=== PATIENT | female | born 1975 | race African-American/Black ===

== ENCOUNTER 2023-10-06 07:59 | Day surgery (SDC) | payer OTHER ==
[~2023-10-06] VITALS: Ht 4 cm; Wt 72.6 kg
[2023-10-06] MEDS ORDERED: MIDAZOLAM 5 MG/5 ML VIAL ONE (09:13)
[2023-10-06] MEDS ORDERED: fentaNYL citrate 0.05 MG/ML VIAL ONE (09:13)
[2023-10-06] MEDS: fentaNYL citrate 0.05 MG/ML VIAL IVP ONE (09:35)
[2023-10-06] MEDS: LIDOCAINE 2% 100 MG/5 ML UJET TP ONE (09:36)
[2023-10-06] MEDS ORDERED: hydrALAZINE 20 MG/ML VIAL ONE (09:37)
[2023-10-06] MEDS: hydrALAZINE 20 MG/ML VIAL IVP ONE (09:39)
[2023-10-06] MEDS: ONDANSETRON 4 MG/2 ML VIAL ONE (09:57)
[2023-10-06] MEDS ORDERED: EPINEPHrine PFS 0.1 MG/ML SYR IVP ONE (10:11)
[2023-10-06] MEDS: EPINEPHrine PFS 0.1 MG/ML SYR IVP ONE (10:14)
== END 2023-10-06 12:53 | disposition home or self-care (01) ==
LOC: MMU 07:59 → MOR 07:59
PROVIDERS: ATTEND Internal Medicine Gastroenterology
DX: K62.5 Hemorrhage of anus and rectum (principal); D12.5 Benign neoplasm of sigmoid colon; K64.9 Unspecified hemorrhoids; I10 Essential (primary) hypertension; E78.00 Pure hypercholesterolemia, unspecified; Z90.710 Acquired absence of both cervix and uterus; F17.210 Nicotine dependence, cigarettes, uncomplicated; Z79.899 Other long term (current) drug therapy
CPT/HCPCS: 45381; 45385; 88305; J0171; J0360; J2405; J3010; J2250

== ENCOUNTER 2024-03-08 08:41 | Day surgery (SDC) | payer OTHER ==
[~2024-03-08] VITALS: Ht 162.6 cm; Wt 72.6 kg
[2024-03-08 09:50] LABS: ANION GAP 11.9 (8-16); CALCIUM 8.7 mg/dL (8.5-10.1); CARBON DIOXIDE 26.5 mmol/L (21-32); CREATININE 0.7 mg/dL (0.6-1.3); POTASSIUM 3.4 mmol/L (3.5-5.1); TOTAL BILIRUBIN 0.6 mg/dL (0.0-1.0); TOTAL PROTEIN, SERUM 7.6 g/dL (6.4-8.2)
[2024-03-08] MEDS ORDERED: LABETALOL 20 MG/4 ML VIAL IVP ONE (10:13)
[2024-03-08] MEDS ORDERED: hydrALAZINE 20 MG/ML VIAL ONE (10:15)
[2024-03-08 10:21] LABS: BASOPHILS # (AUTO) 0.1 K/uL (0.00-0.22); EOSINOPHILS # (AUTO) 0.2 K/uL (0-0.4); EOSINOPHILS % (AUTO) 2.7 % (0.0-4.0); HEMOGLOBIN 13.7 g/dL (12.0-16.0); LYMPHOCYTES # (AUTO) 1.6 K/uL (2.5-16.5); LYMPHOCYTES % (AUTO) 26.3 % (20.5-51.1); MEAN CORPUSCULAR HEMOGLOBIN 28 pg (27-31); MEAN CORPUSCULAR HGB CONC 34 g/dL (33-37); MEAN CORPUSCULAR VOLUME 83.4 fL (80-94); MONOCYTES # (AUTO) 0.4 K/uL (0.8-1.0); MONOCYTES % (AUTO) 7.2 % (1.7-9.3); NEUTROPHILS # (AUTO) 3.7 K/uL (1.8-7.7); NEUTROPHILS % (AUTO) 62.8 % (42.2-75.2); PLATELET COUNT (AUTO) 363 K/uL (140-450); RED BLOOD CELL COUNT(AUTO) 4.91 MIL/uL (4.20-5.40)
[2024-03-08] MEDS ORDERED: ONDANSETRON 4 MG/2 ML VIAL ONE (11:00)
[2024-03-08 12:00] VITALS: BP 142/88; PULSE 85; RESP 18; TEMP 97.6
== END 2024-03-08 15:35 | disposition left against medical advice (07) ==
LOC: MOR 08:41 → MMU 08:42 → MTU 11:50 → MOR 15:35
PROVIDERS: ATTEND Internal Medicine Gastroenterology
DX: Z12.11 Encounter for screening for malignant neoplasm of colon (principal); Z86.010 Personal history of colon polyps; I10 Essential (primary) hypertension; G62.9 Polyneuropathy, unspecified; K21.9 Gastro-esophageal reflux disease without esophagitis; Z53.8 Procedure and treatment not carried out for other reasons
CPT/HCPCS: 36415; 80053; 85025; J0360; J2405; J3490